=== PATIENT | female | born 1990 ===

== ENCOUNTER 2025-04-16 20:16 | Emergency (ER) | payer SELFPAY ==
[2025-04-16 20:19] VITALS: BP 129/75; PULSE 75; RESP 14; TEMP 36.7; O2SAT 100
--- NOTE | 2025-04-16 20:38 | PC.NURSE ---
pt up to front office help stating I think I am over the worst of it. If I need I can always come back. pt instructed to go to the nearest ER or follow up with pcp. pt ambulated out of ED in no acute distress
== END 2025-04-16 20:38 | disposition left against medical advice (07) ==
PROVIDERS: PCP Nurse Practitioner Family
DX: R10.10 Upper abdominal pain, unspecified (principal)
CPT/HCPCS: 99199